=== PATIENT | female | born 2000 | race Caucasian/White ===

== ENCOUNTER 2023-11-10 19:31 | Inpatient (IN) | payer BC ==
[2023-11-10] MEDS ORDERED: Ondansetron 4 MG/2 ML SDV IVPUSH PRN (19:39)
[2023-11-10] MEDS ORDERED: Sodium Chloride 0.9% 10 ML Syringe FLUSH PRN (19:39)
[2023-11-10] MEDS ORDERED: Nalbuphine HCl 10 MG/ 1ML Amp IVPUSH PRN (19:39)
[2023-11-10] MEDS ORDERED: Lidocaine 1% 50 ML MDV INJECT PRN (19:39)
[2023-11-10] MEDS ORDERED: Calcium Carbonate 500 MG Tab.Chew PO PRN (19:39)
[2023-11-10] MEDS ORDERED: Oxytocin/Lactated Ringers 30 UNIT/500 ML BAG IV SCH (19:45)
[2023-11-10 19:54] LABS: BASOPHILS PERCENT AUTO 0.3 % (0.0-1.0); EOSINOPHILS ABSOLUTE AUTO 0.2 K/mm3 (0.0-0.4); EOSINOPHILS PERCENT AUTO 1.5 % (0.0-6.0); HEMOGLOBIN 11.5 gm/dl (12.0-16.0); IMMATURE GRAN ABSOLUTE AUTO 0.03 K/mm3 (0.00-0.05); IMMATURE GRAN PERCENT AUTO 0.3 % (0.0-0.4); LYMPHOCYTES ABSOLUTE AUTO 2.3 K/mm3 (1.0-4.8); LYMPHOCYTES PERCENT AUTO 22.9 % (24.0-44.0); MEAN CORPUSCULAR HGB CONC 32.9 g/dl (32.0-36.0); MEAN CORPUSCULAR VOLUME 97.5 fl (83.0-99.0); MEAN PLATELET VOLUME 11.2 fl (9.4-12.3); MONOCYTES ABSOLUTE AUTO 0.7 K/mm3 (0.0-0.8); MONOCYTES PERCENT AUTO 6.9 % (0.0-8.0); NEUTROPHILS ABSOLUTE AUTO 6.8 K/mm3 (1.8-7.7); NEUTROPHILS PERCENT AUTO 68.1 % (41.0-71.0); PLATELET COUNT,PLT 183 K/mm3 (150-400); RED BLOOD CELL COUNT 3.59 M/mm3 (4.10-5.30); WHITE BLOOD CELL COUNT,WBC 10.01 K/mm3 (3.9-11.3)
[2023-11-10] MEDS ORDERED: Penicillin G Potassium 5 MILLUNITS in Sodium Chloride 0.9% 100 ML IV ONE (20:00)
[2023-11-10] MEDS: Lactated Ringers 1,000 ML IV SCH ×3 (20:07→22:06)
[2023-11-10] MEDS ORDERED: Sodium Chloride 0.9% 10 ML Syringe FLUSH SCH (21:00)
[2023-11-10] MEDS ORDERED: fentaNYL 100 MCG/2 ML SDV EPIDUR PRN (21:05)
[2023-11-10] MEDS ORDERED: ePHEDrine 50 MG/ML SDV IVPUSH PRN (21:05)
[2023-11-10] MEDS ORDERED: diphenhydrAMINE 50 MG/ML SDV IVPUSH PRN (21:05)
[2023-11-10] MEDS: Bupivacaine/fentaNYL/NS 100 ML Bag EPIDUR PRN (21:39)
[2023-11-10 23:04] LABS: A/G RATIO 0.5 (1-2); ALBUMIN 2.5 g/dl (3.4-5.0); ANION GAP 13.5 (5-15); BILIRUBIN TOTAL 0.2 mg/dL (0.2-1.0); BUN/CREATININE RATIO 12.2 (14-18); CALCIUM 8.5 mg/dL (8.5-10.1); CREATININE 0.9 mg/dL (0.55-1.02); EST CRCL DRUG DOSING (CG) 107.73 mL/min; POTASSIUM,K 3.5 mEq/L (3.5-5.1); PROTEIN TOTAL,TP 7.1 g/dl (6.4-8.2)
[2023-11-10 23:12] LABS: CREATININE,URINE RAND 29.7 mg/dL (30.0-125.0); PROTEIN CREATININE RATIO,URINE 255.9 mg/g (0-149); PROTEIN,URINE RANDOM 7.6 mg/dL (0.0-11.8)
[2023-11-10] MEDS: Penicillin G Potassium 2.5 MILLUNITS in Sodium Chloride 0.9% 100 ML IV SCH (23:38)
[2023-11-11] MEDS: Lactated Ringers 1,000 ML IV SCH (00:01)
[2023-11-11] MEDS ORDERED: Oxytocin/Lactated Ringers 30 UNIT/500 ML BAG IV SCH (02:30)
[2023-11-11] MEDS: Penicillin G Potassium 2.5 MILLUNITS in Sodium Chloride 0.9% 100 ML IV SCH ×2 (03:57→22:43)
[2023-11-11] MEDS: Bupivacaine/fentaNYL/NS 100 ML Bag EPIDUR PRN (05:10)
[2023-11-11] MEDS ORDERED: Benzocaine/Menthol 20%-0.5% Spray 78 GM Cannister TOP PRN (08:04)
[2023-11-11] MEDS ORDERED: Witch Hazel Medicated Pads 40/Jar TOP PRN (08:04)
[2023-11-11] MEDS: Acetaminophen 325 MG Tab PO PRN ×3 (10:21→19:45)
[2023-11-11] MEDS: Ibuprofen 600 MG Tab PO PRN (18:46)
[2023-11-12] MEDS: Ibuprofen 600 MG Tab PO PRN ×2 (00:07→12:27)
[2023-11-12] MEDS: Acetaminophen 325 MG Tab PO PRN (04:13)
== END 2023-11-12 16:00 | disposition home or self-care (01) | DRG 560 ==
LOC: JD.OBCHECK 19:31 → JD.OB 19:33 → JD.OBCHECK 19:38 → JD.OB 19:39 → OBSVTOIN 11-11 05:30 → JD.OB 11-11 05:31
PROVIDERS: ADMIT Family Medicine; ATTEND Family Medicine
PROC: 10E0XZZ Delivery of Products of Conception, External Approach (ICD-10-PCS; principal; 2023-11-11)
PROC: 3E033VJ Introduction of Other Hormone into Peripheral Vein, Percutaneous Approach (ICD-10-PCS; 2023-11-11)
PROC: 3E0R3BZ Introduction of Anesthetic Agent into Spinal Canal, Percutaneous Approach (ICD-10-PCS; 2023-11-11)
PROC: 00HU33Z Insertion of Infusion Device into Spinal Canal, Percutaneous Approach (ICD-10-PCS; 2023-11-11)
PROC: 0KQM0ZZ Repair Perineum Muscle, Open Approach (ICD-10-PCS; 2023-11-11)
DX: O42.02 Full-term premature rupture of membranes, onset of labor within 24 hours of rupture (principal); O99.824 Streptococcus B carrier state complicating childbirth; Z37.0 Single live birth; Z3A.38 38 weeks gestation of pregnancy; O99.113 Other diseases of the blood and blood-forming organs and certain disorders involving the immune mechanism complicating pregnancy, third trimester; D69.6 Thrombocytopenia, unspecified; O99.02 Anemia complicating childbirth; D64.9 Anemia, unspecified; O69.81X0 Labor and delivery complicated by cord around neck, without compression, not applicable or unspecified; O70.1 Second degree perineal laceration during delivery; O16.3 Unspecified maternal hypertension, third trimester
CPT/HCPCS: 36415; 51702; 51703; 59025; 59409; 80053; 82570; 84156; 85025; 86592; A9270-GY; J2540; J3010; J3490; J7120; J7999